=== PATIENT | female | born 1955 | race African-American/Black ===

== ENCOUNTER 2017-10-17 10:35 | Inpatient (IN) | payer MEDICARE, OTHER ==
[~2017-10-17] VITALS: Ht 175.3 cm; Wt 53.6 kg
[2017-10-17] MEDS ORDERED: MILLIPRED5 MG PEG (11:03)
[2017-10-17] MEDS ORDERED: ZOFRAN ODT4 MG PEG (11:03)
[2017-10-17] MEDS ORDERED: ACIDOPHILUS1 EAC1 PEG (11:03)
[2017-10-17] MEDS ORDERED: ULTRAM 50MG50 MG PEG (11:03)
[2017-10-17] MEDS ORDERED: QUESTRAN PACKET4 GM PEG (11:03)
[2017-10-17] MEDS ORDERED: ASPIRIN81 MG PO (11:03)
[2017-10-17] MEDS ORDERED: MULTIVITAMINS1 EAC6 PEG (11:03)
[2017-10-17] MEDS ORDERED: VANCOMYCIN HCL250 MG PEG (11:03)
[2017-10-17] MEDS ORDERED: Keppra solution PEG (11:03)
[2017-10-17] MEDS ORDERED: ORAZINC220 MG PO (11:03)
[2017-10-17] MEDS ORDERED: IMURAN50 MG PO (11:03)
[2017-10-17] MEDS ORDERED: IPRAT-ALBUT 0.5-3 ML INH (11:03)
[2017-10-17] MEDS ORDERED: VITAMIN C500 M1 PEG (11:03)
[2017-10-17] MEDS ORDERED: VITAMIN D32000 UNIT PEG (11:03)
[2017-10-17] MEDS ORDERED: Apixaban PO (11:03)
[2017-10-17] MEDS ORDERED: SODIUM CHLORIDE 0.9% 1000ML 1,000 ML IV STA (11:20)
--- NOTE | 2017-10-17 11:21 | Diagnostic Imaging Report ---
PROCEDURE: CHEST SINGLE (PORTABLE) COMPARISON: None. INDICATIONS: COUGH, FEVER FINDINGS: The lungs are hyperinflated with bullous changes noted within the left lung. Patchy airspace opacity in the right lung base. No pleural effusion or pneumothorax. Tortuosity and atherosclerotic calcification of the thoracic aorta with normal heart size. Tracheostomy tube tip lies within the mid trachea. No acute osseous abnormality. Probable percutaneous gastrostomy catheter projects over the left upper quadrant. CONCLUSION: Patchy airspace disease in the right lung base is concerning for aspiration or pneumonia in the clinical setting of cough and fever. Emphysematous and bullous changes predominantly within the left upper lung as described. Dictated by: Berry Maier M.D. on 10/17/2017 at 11:26 Electronically approved by: Berry Maier M.D. on 10/17/2017 at 11:26
[2017-10-17 11:29] LABS: BASOPHILS % 0.2 % (0.0-1.0); HEMATOCRIT 34.1 % (34.2-44.1); HEMOGLOBIN 10.9 g/dL (12.0-16.0); LYMPHOCYTES # (AUTO) 0.8 (1.0-3.2); LYMPHOCYTES % 13.9 % (18.0-39.1); MEAN CORPUSCULAR HEMOGLOBIN 27.8 pg (28-32); MONOCYTES # (AUTO) 0.4 (0.2-0.8); MONOCYTES % 7.5 % (4.4-11.3); NEUTROPHILS # (AUTO) 4.5 (2.1-6.9); NEUTROPHILS % 78.1 % (38.7-80.0); PLATELET COUNT 308 x10e3/uL (140-360); RED BLOOD COUNT 3.92 x10e6/uL (3.6-5.1); RED CELL DISTRIBUTION WIDTH 16.9 % (11.7-14.4)
[2017-10-17 11:39] LABS: BILIRUBIN,URINE NEGATIVE (NEGATIVE); COLOR,URINE YELLOW (YELLOW); KETONES,URINE NEGATIVE (NEGATIVE); NITRITE,URINE POSITIVE (NEGATIVE); PROTEIN,URINE DIPSTICK 1+ (NEGATIVE); URINE UROBILINOGEN 0.2 mg/dL (0.2 - 1)
[2017-10-17 11:40] LABS: CLARITY,URINE CLOUDY (CLEAR); LEUKOCYTE ESTERASE ,URINE 2+ (NEGATIVE)
[2017-10-17] MEDS ORDERED: CEFTRIAXONE SOD 1 GM VIAL IM ONE (11:45)
[2017-10-17 11:47] LABS: BACTERIA,URINE FEW /HPF; EPITHELIAL CELLS,URINE FEW /LPF
[2017-10-17 12:14] LABS: ANION GAP 12.6 mmol/L (8-16); BLOOD UREA NITROGEN 11 mg/dL (7-26); BUN/CREATININE RATIO 16 (6-25); CALCIUM 9.6 mg/dL (8.4-10.2); CARBON DIOXIDE 25 mmol/L (22-29); CHLORIDE 101 mmol/L (98-107); CREATININE, SERUM 0.67 mg/dL (0.57-1.11); EST GLOMERULAR FILTRATION RATE > 60 ML/MIN (60-); GLUCOSE 99 mg/dL (74-118); POTASSIUM 4.6 mmol/L (3.5-5.1); SODIUM 134 mmol/L (136-145)
[2017-10-17] MEDS ORDERED: ALBUTEROL SULF 0.083% NEB SOLN 3 ML NEB NEB PRN (12:30)
[2017-10-17] MEDS: CEFEPIME HCL 1 GM VIAL IV SCH (12:54)
[2017-10-17] MEDS: AZITHROMYCIN 500MG/NS 250 ML 250 ML IV SCH (12:54)
[2017-10-17] MEDS: SODIUM CHLORIDE 0.9% 1000ML 1,000 ML IV SCH ×2 (15:31→21:03)
[2017-10-17 19:28] VITALS: BP 136/44
[2017-10-17 19:38] VITALS: BP 136/44
[2017-10-18] VITALS (8 sets, daily range): BP systolic 108–134; BP diastolic 59–107
[2017-10-18] MEDS: CEFEPIME HCL 1 GM VIAL IV SCH ×2 (01:12→16:23)
[2017-10-18] MEDS: SODIUM CHLORIDE 0.9% 1000ML 1,000 ML IV SCH ×3 (02:30→20:44)
[2017-10-18] MEDS: AZITHROMYCIN 500MG/NS 250 ML 250 ML IV SCH (09:10)
[2017-10-18] MEDS ORDERED: CHOLESTYRAMINE 4 GM PACKET PEG PRN (18:00)
[2017-10-18] MEDS ORDERED: TRAMADOL HCL 50 MG TAB PEG PRN (18:00)
[2017-10-18] MEDS ORDERED: ALBUTEROL/IPRATROPIUM 3 ML NEB INH PRN (18:00)
[2017-10-18] MEDS ORDERED: VANCOMYCIN 250MG/5ML ORAL SOLN PEG SCH (18:00)
[2017-10-18] MEDS: VANCOMYCIN 250MG/5ML ORAL SOLN PEG SCH (18:28)
[2017-10-18] MEDS ORDERED: LEVETIRACETAM PEG SCH (21:00)
[2017-10-18] MEDS: VANCOMYCIN 1GM/NS 250 ML 250 ML IV SCH (22:03)
[2017-10-18] MEDS: LEVETIRACETAM ORAL SOLUTION 500 MG/5 ML SOLN PEG SCH (22:03)
[2017-10-19] VITALS (7 sets, daily range): BP systolic 127–143; BP diastolic 76–86
[2017-10-19] MEDS: VANCOMYCIN 250MG/5ML ORAL SOLN PEG SCH ×5 (00:37→23:51)
[2017-10-19] MEDS: CEFEPIME HCL 1 GM VIAL IV SCH ×3 (00:37→23:51)
[2017-10-19] MEDS: SODIUM CHLORIDE 0.9% 1000ML 1,000 ML IV SCH ×3 (04:25→21:25)
[2017-10-19] MEDS: MULTIVITAMINS 5 ML LIQUID PEG SCH (09:00)
[2017-10-19] MEDS ORDERED: NON-FORMULARY MEDICATION (Cholecalciferol (Vitamin D3) (Vitamin D3) 2,000 UNITS) PEG SCH (09:00)
[2017-10-19] MEDS: AZATHIOPRINE 50 MG TAB PO SCH (09:00)
[2017-10-19] MEDS ORDERED: NON-FORMULARY MEDICATION ([Apixaban] 5 MG) PO SCH (09:00)
[2017-10-19] MEDS: LACTOBACILLUS ACIDOPHILUS CAPSULE PEG SCH ×2 (09:00→17:00)
[2017-10-19] MEDS: PREDNISOLONE 15 MG/5 ML ORAL SOLUTION PEG SCH (09:00)
[2017-10-19] MEDS: ASCORBIC ACID 500 MG TAB PEG SCH ×2 (09:00→17:00)
[2017-10-19] MEDS ORDERED: MULTIVITAMINS/MINERALS TAB PEG SCH (09:00)
[2017-10-19] MEDS: APIXABAN 5 MG TABLET PO SCH ×2 (09:00→17:00)
[2017-10-19] MEDS: ASPIRIN 81 MG CHEW TAB PO SCH (09:00)
[2017-10-19] MEDS ORDERED: PREDNISOLONE 5 MG PEG SCH (09:00)
[2017-10-19] MEDS: VANCOMYCIN 1GM/NS 250 ML 250 ML IV SCH ×2 (09:00→21:25)
[2017-10-19] MEDS: ZINC SULFATE 220 MG CAP PO SCH (09:00)
[2017-10-19] MEDS: LEVETIRACETAM ORAL SOLUTION 500 MG/5 ML SOLN PEG SCH ×2 (09:00→21:25)
[2017-10-19] MEDS: CHOLECALCIFEROL 1,000 UNIT TAB PEG SCH (09:00)
[2017-10-19] MEDS: AZITHROMYCIN 500MG/NS 250 ML 250 ML IV SCH (10:10)
[2017-10-20] VITALS (8 sets, daily range): BP systolic 114–144; BP diastolic 56–80
[2017-10-20] MEDS: SODIUM CHLORIDE 0.9% 1000ML 1,000 ML IV SCH ×2 (04:25→17:02)
[2017-10-20] MEDS: VANCOMYCIN 250MG/5ML ORAL SOLN PEG SCH ×4 (05:55→23:21)
[2017-10-20] MEDS: LEVETIRACETAM ORAL SOLUTION 500 MG/5 ML SOLN PEG SCH ×2 (08:37→20:52)
[2017-10-20] MEDS: AZATHIOPRINE 50 MG TAB PO SCH (08:37)
[2017-10-20] MEDS: APIXABAN 5 MG TABLET PO SCH ×2 (08:37→17:58)
[2017-10-20] MEDS: LACTOBACILLUS ACIDOPHILUS CAPSULE PEG SCH ×2 (08:37→17:58)
[2017-10-20] MEDS: ASCORBIC ACID 500 MG TAB PEG SCH ×2 (08:37→17:58)
[2017-10-20] MEDS: CHOLECALCIFEROL 1,000 UNIT TAB PEG SCH (08:37)
[2017-10-20] MEDS: ONDANSETRON HCL 4 MG ORAL DISINTEGRATING TAB PEG PRN (08:37)
[2017-10-20] MEDS: AZITHROMYCIN 500MG/NS 250 ML 250 ML IV SCH (08:37)
[2017-10-20] MEDS: ASPIRIN 81 MG CHEW TAB PO SCH (08:37)
[2017-10-20] MEDS: ZINC SULFATE 220 MG CAP PO SCH (08:37)
[2017-10-20] MEDS: PREDNISOLONE 15 MG/5 ML ORAL SOLUTION PEG SCH (08:39)
[2017-10-20] MEDS: MULTIVITAMINS 5 ML LIQUID PEG SCH (08:39)
[2017-10-20] MEDS: VANCOMYCIN 1GM/NS 250 ML 250 ML IV SCH ×2 (10:44→20:52)
[2017-10-20] MEDS: CEFEPIME HCL 1 GM VIAL IV SCH ×2 (12:19→23:21)
--- NOTE | 2017-10-20 14:42 | Consultation ---
DATE OF CONSULTATION: REASON FOR CONSULTATION: Pneumonia. This patient who is a 61-year-old female who has a history of trach was brought to the emergency room because she had a dislodged trach. It was noted to have some discharge around the trach site. The patient was admitted. The patient has a history of hypertension, history of C. diff, history of CVA, history of dysphagia, seizure disorder, decubitus ulcer, atrial fibrillation, comes in for dislodged trach. The patient is not able to provide any further information. History was taken mainly from the chart. The patient is currently laying in bed comfortably. PAST MEDICAL HISTORY: As above. PAST SURGICAL HISTORY: Trach. ALLERGIES: NKA. SOCIAL HISTORY: Noncontributory. FAMILY HISTORY: Could not be obtained. REVIEW OF SYSTEMS: Could not be obtained. LABORATORY DATA: Reviewed. Sputum showing Pseudomonas aeruginosa. Blood cultures with gram-positive cocci in 1 out of 2. Urine showed also Pseudomonas aeruginosa and Providencia. Her white count is 5.7, hemoglobin 10.9, hematocrit 34. Her sodium is 134, potassium 4.6, creatinine 0.67. PHYSICAL EXAMINATION GENERAL: She is alert and noncommunicative. VITALS: Stable and afebrile. HEENT: She is anicteric. NECK: Supple. CHEST: Few crackles bilaterally. CORE: S1 and S2. ABDOMEN: Soft. The patient had a chest x-ray that showed emphysematous bullous changes, patchy airspace and lung disease concerning for aspiration. IMPRESSION 1. History of Clostridium difficile. 2. Aspiration pneumonia, present on admission. 3. Trach which was dislodged and repaired. 4. Trach site infection. 5. Bronchitis. 6. Colonization with multiple drug-resistant. 7. The patient is currently on cefepime and intravenous vancomycin and oral vancomycin. I would recommend to give vancomycin and cefepime IV for 5 days. The oral vancomycin for 3 weeks. Continue with local care for the trach. Will follow. Job#: [id number] NC
[2017-10-21] VITALS (7 sets, daily range): BP systolic 124–162; BP diastolic 63–89
[2017-10-21] MEDS: SODIUM CHLORIDE 0.9% 1000ML 1,000 ML IV SCH ×4 (04:00→21:15)
[2017-10-21 05:02] LABS: BASOPHILS % 0.4 % (0.0-1.0); EOSINOPHILS # (AUTO) 0.1 (0.0-0.4); EOSINOPHILS % 2.6 % (0.0-6.0); HEMATOCRIT 30.6 % (34.2-44.1); HEMOGLOBIN 9.4 g/dL (12.0-16.0); LYMPHOCYTES # (AUTO) 0.8 (1.0-3.2); LYMPHOCYTES % 33.6 % (18.0-39.1); MEAN CORPUSCULAR HEMOGLOBIN 27.6 pg (28-32); MEAN CORPUSCULAR HGB CONC 30.7 g/dL (31-35); MONOCYTES # (AUTO) 0.4 (0.2-0.8); MONOCYTES % 15.1 % (4.4-11.3); NEUTROPHILS # (AUTO) 1.1 (2.1-6.9); NEUTROPHILS % 48.3 % (38.7-80.0); PLATELET COUNT 286 x10e3/uL (140-360); RED CELL DISTRIBUTION WIDTH 16.2 % (11.7-14.4)
[2017-10-21 05:23] LABS: ANION GAP 8.9 mmol/L (8-16); BLOOD UREA NITROGEN 10 mg/dL (7-26); BUN/CREATININE RATIO 19 (6-25); CALCIUM 8.9 mg/dL (8.4-10.2); CARBON DIOXIDE 23 mmol/L (22-29); CHLORIDE 114 mmol/L (98-107); CREATININE, SERUM 0.53 mg/dL (0.57-1.11); EST GLOMERULAR FILTRATION RATE > 60 ML/MIN (60-); GLUCOSE 98 mg/dL (74-118); POTASSIUM 3.9 mmol/L (3.5-5.1); SODIUM 142 mmol/L (136-145)
[2017-10-21] MEDS: VANCOMYCIN 250MG/5ML ORAL SOLN PEG SCH (06:10)
[2017-10-21] MEDS: PREDNISOLONE 15 MG/5 ML ORAL SOLUTION PEG SCH (09:05)
[2017-10-21] MEDS: CHOLECALCIFEROL 1,000 UNIT TAB PEG SCH (09:05)
[2017-10-21] MEDS: ASPIRIN 81 MG CHEW TAB PO SCH (09:05)
[2017-10-21] MEDS: APIXABAN 5 MG TABLET PO SCH ×2 (09:05→17:12)
[2017-10-21] MEDS: LACTOBACILLUS ACIDOPHILUS CAPSULE PEG SCH ×2 (09:05→17:12)
[2017-10-21] MEDS: ZINC SULFATE 220 MG CAP PO SCH (09:05)
[2017-10-21] MEDS: AZITHROMYCIN 500MG/NS 250 ML 250 ML IV SCH (09:05)
[2017-10-21] MEDS: ASCORBIC ACID 500 MG TAB PEG SCH ×2 (09:05→17:12)
[2017-10-21] MEDS: AZATHIOPRINE 50 MG TAB PO SCH (09:05)
[2017-10-21] MEDS: LEVETIRACETAM ORAL SOLUTION 500 MG/5 ML SOLN PEG SCH ×2 (09:05→21:15)
[2017-10-21] MEDS: LINEZOLID 600 MG/D5W 300ML 300 ML IV SCH ×2 (09:55→21:15)
[2017-10-21] MEDS: MULTIVITAMINS 5 ML LIQUID PEG SCH (10:23)
[2017-10-21] MEDS: CEFEPIME HCL 1 GM VIAL IV SCH ×2 (12:56→23:19)
[2017-10-21] MEDS ORDERED: ARTIFICIAL TEARS (OPTH) 15 ML BTL OP PRN (19:15)
[2017-10-22 00:54] VITALS: BP 118/71
[2017-10-22 04:50] VITALS: BP 145/86
[2017-10-22] MEDS: SODIUM CHLORIDE 0.9% 1000ML 1,000 ML IV SCH ×3 (06:33→20:25)
[2017-10-22 07:50] VITALS: BP 148/85
[2017-10-22] MEDS ORDERED: ALBUTEROL/IPRATROPIUM 3 ML NEB INH PRN (08:00)
[2017-10-22] MEDS: APIXABAN 5 MG TABLET PO SCH ×2 (08:52→16:16)
[2017-10-22] MEDS: LINEZOLID 600 MG/D5W 300ML 300 ML IV SCH ×2 (08:52→20:50)
[2017-10-22] MEDS: LEVETIRACETAM ORAL SOLUTION 500 MG/5 ML SOLN PEG SCH ×2 (08:52→20:50)
[2017-10-22] MEDS: ZINC SULFATE 220 MG CAP PO SCH (08:52)
[2017-10-22] MEDS: ASPIRIN 81 MG CHEW TAB PO SCH (08:52)
[2017-10-22] MEDS: AZATHIOPRINE 50 MG TAB PO SCH (08:52)
[2017-10-22] MEDS: ASCORBIC ACID 500 MG TAB PEG SCH ×2 (08:52→16:16)
[2017-10-22] MEDS: PREDNISOLONE 15 MG/5 ML ORAL SOLUTION PEG SCH (08:52)
[2017-10-22] MEDS: MULTIVITAMINS 5 ML LIQUID PEG SCH (08:52)
[2017-10-22] MEDS: LACTOBACILLUS ACIDOPHILUS CAPSULE PEG SCH ×2 (08:52→16:16)
[2017-10-22] MEDS: CHOLECALCIFEROL 1,000 UNIT TAB PEG SCH (08:52)
[2017-10-22 11:30] VITALS: BP 134/71
[2017-10-22] MEDS: CEFEPIME HCL 1 GM VIAL IV SCH (12:23)
[2017-10-22] MEDS ORDERED: METRONIDAZOLE 500 MG TAB PEG SCH (14:00)
[2017-10-22] MEDS ORDERED: METRONIDAZOLE 500MG/NS 100ML 100 ML IV SCH (14:00)
[2017-10-22] MEDS: METRONIDAZOLE 500 MG TAB PEG SCH ×2 (14:02→22:30)
[2017-10-22 15:40] VITALS: BP 152/81
[2017-10-22 19:30] VITALS: BP 150/96
[2017-10-23] VITALS (7 sets, daily range): BP systolic 132–146; BP diastolic 73–90
[2017-10-23] MEDS: CEFEPIME HCL 1 GM VIAL IV SCH ×2 (00:51→12:08)
[2017-10-23] MEDS: SODIUM CHLORIDE 0.9% 1000ML 1,000 ML IV SCH ×2 (02:16→12:08)
[2017-10-23] MEDS: METRONIDAZOLE 500 MG TAB PEG SCH ×2 (05:45→14:48)
[2017-10-23] MEDS: LEVETIRACETAM ORAL SOLUTION 500 MG/5 ML SOLN PEG SCH (08:55)
[2017-10-23] MEDS: CHOLECALCIFEROL 1,000 UNIT TAB PEG SCH (08:56)
[2017-10-23] MEDS: ASCORBIC ACID 500 MG TAB PEG SCH ×2 (08:56→17:28)
[2017-10-23] MEDS: LACTOBACILLUS ACIDOPHILUS CAPSULE PEG SCH ×2 (08:56→17:28)
[2017-10-23] MEDS: ASPIRIN 81 MG CHEW TAB PO SCH (08:56)
[2017-10-23] MEDS: ZINC SULFATE 220 MG CAP PO SCH (08:56)
[2017-10-23] MEDS: AZATHIOPRINE 50 MG TAB PO SCH (08:57)
[2017-10-23] MEDS: APIXABAN 5 MG TABLET PO SCH ×2 (08:58→17:28)
[2017-10-23] MEDS: MULTIVITAMINS 5 ML LIQUID PEG SCH (09:00)
[2017-10-23] MEDS: LINEZOLID 600 MG/D5W 300ML 300 ML IV SCH (09:24)
[2017-10-23] MEDS: PREDNISOLONE 15 MG/5 ML ORAL SOLUTION PEG SCH (09:24)
[2017-10-24] VITALS (10 sets, daily range): BP systolic 118–148; BP diastolic 60–89
[2017-10-24] MEDS: LINEZOLID 600 MG/D5W 300ML 300 ML IV SCH ×3 (00:22→21:24)
[2017-10-24] MEDS: LEVETIRACETAM ORAL SOLUTION 500 MG/5 ML SOLN PEG SCH ×3 (00:22→21:24)
[2017-10-24] MEDS: METRONIDAZOLE 500 MG TAB PEG SCH ×4 (00:22→21:24)
[2017-10-24] MEDS: CEFEPIME HCL 1 GM VIAL IV SCH ×2 (00:35→12:35)
[2017-10-24] MEDS: PREDNISOLONE 15 MG/5 ML ORAL SOLUTION PEG SCH (09:43)
[2017-10-24] MEDS: CHOLECALCIFEROL 1,000 UNIT TAB PEG SCH (09:43)
[2017-10-24] MEDS: ASCORBIC ACID 500 MG TAB PEG SCH ×2 (09:43→17:01)
[2017-10-24] MEDS: ASPIRIN 81 MG CHEW TAB PO SCH (09:43)
[2017-10-24] MEDS: LACTOBACILLUS ACIDOPHILUS CAPSULE PEG SCH ×2 (09:43→17:01)
[2017-10-24] MEDS: MULTIVITAMINS 5 ML LIQUID PEG SCH (09:43)
[2017-10-24] MEDS: ZINC SULFATE 220 MG CAP PO SCH (09:44)
[2017-10-24] MEDS: AZATHIOPRINE 50 MG TAB PO SCH (09:44)
[2017-10-24] MEDS: APIXABAN 5 MG TABLET PO SCH ×2 (09:44→17:01)
[2017-10-25] VITALS (13 sets, daily range): BP systolic 120–147; BP diastolic 65–85
[2017-10-25] MEDS: METRONIDAZOLE 500 MG TAB PEG SCH ×3 (05:02→21:12)
[2017-10-25] MEDS: LINEZOLID 600 MG/D5W 300ML 300 ML IV SCH (09:30)
[2017-10-25] MEDS: ASCORBIC ACID 500 MG TAB PEG SCH ×2 (10:15→17:18)
[2017-10-25] MEDS: AZATHIOPRINE 50 MG TAB PO SCH (10:15)
[2017-10-25] MEDS: PREDNISOLONE 15 MG/5 ML ORAL SOLUTION PEG SCH (10:15)
[2017-10-25] MEDS: CHOLECALCIFEROL 1,000 UNIT TAB PEG SCH (10:15)
[2017-10-25] MEDS: ZINC SULFATE 220 MG CAP PO SCH (10:15)
[2017-10-25] MEDS: APIXABAN 5 MG TABLET PO SCH ×2 (10:15→17:18)
[2017-10-25] MEDS: LACTOBACILLUS ACIDOPHILUS CAPSULE PEG SCH ×2 (10:15→17:18)
[2017-10-25] MEDS: MULTIVITAMINS 5 ML LIQUID PEG SCH (10:15)
[2017-10-25] MEDS: LEVETIRACETAM ORAL SOLUTION 500 MG/5 ML SOLN PEG SCH ×2 (10:15→21:12)
[2017-10-25] MEDS: ASPIRIN 81 MG CHEW TAB PO SCH (10:15)
--- NOTE | 2017-10-25 10:44 | Consultation ---
DATE OF CONSULTATION: This is a patient of Dr. Francisco Khalil and Dr. Hicks. Patient is well known to pulmonary service. History of stroke approximately 10 months ago. History of chronic tracheostomy, which was displaced in the [place] [facility] on 10[facility]. She was taken to the hospital, where it was replaced. In the emergency room, she was found to have a right lower lobe pneumonia. Cultures grew pseudomonas. She has a history of persistent right hemiparesis, history of lupus erythematosus, history of dysphagia, hypertension, atrial fibrillation, seizure disorder, sacral wound. SHE IS ALLERGIC TO CODEINE AND TYLENOL. Her medications include aspirin, Imuran, vitamin D, prednisone, tramadol, DuoNeb, Keppra and Eliquis. She is an ex-smoker. PHYSICAL EXAMINATION GENERAL: She is bright and in no acute distress. Tracheostomy was placed. The patient was felt to be at increased risk for recurrent pneumonia and respiratory failure. The family and the patient have agreed with this approach. VITALS: Temperature 98.9, pulse 103, blood pressure 137/77. Pulse feels regular at this time. LUNGS: A few rhonchi. HEART: Regular rhythm. ABDOMEN: Nontender. PEG is in place. : Vega catheter and rectal tube. IMPRESSION 1. Resolving pneumonia. Will request followup chest x-ray now that tracheostomy has been replaced. Continue supportive care. Therapy of lupus. Trial of Passy Jose J. If the patient becomes a little bit stronger, consideration might be to elect to remove the tracheostomy. 2. History of recent Clostridium difficile colitis. MEDICATIONS: Currently, the patient is on DuoNeb on a p.r.n. basis, Eliquis, aspirin, azathioprine, vitamin D, Questran p.r.n., Keppra, Flagyl, prednisone 5 mg. Thank you for this kind referral. Job#: [id number]
--- NOTE | 2017-10-25 11:57 | Diagnostic Imaging Report ---
PROCEDURE: A single AP view of the chest. COMPARISON: Patients [facility], , CHEST SINGLE (PORTABLE), 10/17/2017, 11:01. INDICATIONS: PNEUMONIA FINDINGS: Lines/tubes: A tracheostomy tube in place. Lungs: Lungs are well-inflated. Coarsening of the pulmonary interstitium, predominantly in the lower lungs. Interval improvement of airspace opacity in the right lower lung, however, there is persistent patchy opacity. Pleura: There is no pleural effusion or pneumothorax. Heart and mediastinum: Cardiac silhouette is unremarkable. Pulmonary vasculature is normal. Bones: No acute bony abnormality. IMPRESSION: 1. interval improvement of airspace opacity in the right lower lung. Remaining patchy opacity in the right lower may reflect residual disease superimposed on chronic interstitial changes. Ruslan Florez M.D. Dictated by: Ruslan Florez M.D. on 10/25/2017 at 12:02 Electronically approved by: Ruslan Florez M.D. on 10/25/2017 at 12:02
[2017-10-25] MEDS: ALBUTEROL/IPRATROPIUM 3 ML NEB INH PRN (19:55)
--- NOTE | 2017-10-25 20:26 | Consultation ---
DATE OF CONSULTATION: October 25, 2017 HISTORY OF PRESENT ILLNESS: I was kindly asked to see this 61-year-old woman for evaluation of dislodged tracheostomy tube. Patient had a #4 Shiley cuffed tracheostomy tube in place. The tube was found to be dislodged and unable to be placed through the previous tracheostomy site. For history of present illness, past medical history and past surgical history were reviewed in detail in the chart. PHYSICAL EXAMINATION: The patient is aphonic. Intraoral examination is noncontributory. She has an open tracheocutaneous fistula. There is no palpable cervical adenopathy. The #4 Shiley cuff tracheostomy tube was reinserted. ASSESSMENT: Respiratory failure. PLAN: Will discuss with the patient's primary care physician and top stitcher regarding possibly changing to a larger tracheostomy tube to prevent mucus plugging and provide better pulmonary toilet. Job#: [id number]
[2017-10-26 04:37] VITALS: BP 133/77
[2017-10-26] MEDS: METRONIDAZOLE 500 MG TAB PEG SCH ×3 (05:20→22:43)
[2017-10-26] MEDS: ALBUTEROL/IPRATROPIUM 3 ML NEB INH PRN ×3 (07:28→20:05)
[2017-10-26 07:30] VITALS: BP 136/66
[2017-10-26] MEDS: MULTIVITAMINS 5 ML LIQUID PEG SCH (08:34)
[2017-10-26] MEDS: LACTOBACILLUS ACIDOPHILUS CAPSULE PEG SCH ×2 (08:34→17:41)
[2017-10-26] MEDS: AZATHIOPRINE 50 MG TAB PO SCH (08:34)
[2017-10-26] MEDS: CHOLECALCIFEROL 1,000 UNIT TAB PEG SCH (08:34)
[2017-10-26] MEDS: APIXABAN 5 MG TABLET PO SCH ×2 (08:34→17:41)
[2017-10-26] MEDS: ASPIRIN 81 MG CHEW TAB PO SCH (08:34)
[2017-10-26] MEDS: ASCORBIC ACID 500 MG TAB PEG SCH ×2 (08:34→17:41)
[2017-10-26] MEDS: PREDNISOLONE 15 MG/5 ML ORAL SOLUTION PEG SCH (08:34)
[2017-10-26] MEDS: LEVETIRACETAM ORAL SOLUTION 500 MG/5 ML SOLN PEG SCH ×2 (08:34→21:49)
[2017-10-26] MEDS: ZINC SULFATE 220 MG CAP PO SCH (08:34)
[2017-10-26 11:30] VITALS: BP 136/74
[2017-10-26 17:01] VITALS: BP 145/99
[2017-10-26 19:00] VITALS: BP 155/82
[2017-10-26 23:00] VITALS: BP 119/64
[2017-10-27 04:00] VITALS: BP 143/75
[2017-10-27] MEDS: METRONIDAZOLE 500 MG TAB PEG SCH ×3 (06:33→22:18)
[2017-10-27] MEDS: ALBUTEROL/IPRATROPIUM 3 ML NEB INH PRN (06:59)
[2017-10-27 09:21] VITALS: BP 130/65
[2017-10-27 09:22] VITALS: BP 130/65
--- NOTE | 2017-10-27 10:15 | Progress Note ---
DATE: October 26, 2017 I had discussed the risk of keeping the #[address] Washburn with concern over possible mucous plugging of the small tracheostomy tube. He had discussed the case with her primary care physician. It was felt that she needed the tracheostomy tube for pulmonary toilet. I made plans to replace the #4 tracheostomy tube with a #6 tracheostomy tube for decreased risk of mucous plugging and increased ability for pulmonary toilet. However the patient's family member "Sneha" did not want to have this tracheostomy tube changed. She much preferred that the patient be decannulated. I explained that while the #4 tracheostomy tube was out that she had no difficulty breathing and that the need for the tracheostomy tube was for pulmonary toilet. Sneha preferred to discuss the case further with the histology manager and primary care physician regarding possible decannulation rather than upsizing the tracheostomy tube. ASSESSMENT: Currently stable with #4 tracheostomy tube. PLAN: Will await patient's family decision after consultation with other physicians involved on the case regarding the upsizing of the tracheostomy tube versus decannulation. Job#: [id number] MAU
[2017-10-27] MEDS: ASCORBIC ACID 500 MG TAB PEG SCH ×2 (10:38→17:48)
[2017-10-27] MEDS: ASPIRIN 81 MG CHEW TAB PO SCH (10:38)
[2017-10-27] MEDS: CHOLECALCIFEROL 1,000 UNIT TAB PEG SCH (10:38)
[2017-10-27] MEDS: ZINC SULFATE 220 MG CAP PO SCH (10:38)
[2017-10-27] MEDS: APIXABAN 5 MG TABLET PO SCH ×2 (10:38→17:48)
[2017-10-27] MEDS: LACTOBACILLUS ACIDOPHILUS CAPSULE PEG SCH ×2 (10:38→17:48)
[2017-10-27] MEDS: MULTIVITAMINS 5 ML LIQUID PEG SCH (10:38)
[2017-10-27] MEDS: LEVETIRACETAM ORAL SOLUTION 500 MG/5 ML SOLN PEG SCH ×2 (10:38→22:18)
[2017-10-27] MEDS: PREDNISOLONE 15 MG/5 ML ORAL SOLUTION PEG SCH (10:38)
[2017-10-27] MEDS: AZATHIOPRINE 50 MG TAB PO SCH (10:40)
[2017-10-27 11:00] VITALS: BP 151/94
--- NOTE | 2017-10-27 16:05 | Progress Note ---
DATE: INTERNAL MEDICINE PROGRESS NOTE SUBJECTIVE: The patient is doing well. No significant complaint. PHYSICAL EXAMINATION VITAL SIGNS: Blood pressure 130/65. Temperature 99 degrees. Heart rate 81 per minute. Respiratory rate is 18 per minute. Oxygen saturation is 98%. HEART: Regular rhythm. Normal S1 and S2 sounds. LUNGS: Clear bilaterally. ABDOMEN: Soft. PEG tube in place. EXTREMITIES: No evidence of edema. BLOOD WORK: We have a BMP with a sodium 142, potassium 3.9, chloride 114, CO2 23. BUN 10, creatinine 0.53, glucose 98. CBC showed white blood count 2.32, hemoglobin 9.4, hematocrit 30.6, platelet count 296,000. FINAL IMPRESSION 1. Aspiration pneumonia. 2. Ohaqr-rf-efzmjbn respiratory failure status post tracheostomy. 3. Status post cerebrovascular accident with aphasia. 4. Dysphagia secondary to cerebrovascular accident. 5. History of Clostridium difficile colitis. 6. Anemia of chronic disease. 7. Vitamin D deficiency. 8. Sacral wound, stage 3 to 4. PLAN OF TREATMENT 1. Continue current wound care treatment. 2. Continue albuterol and Atrovent q.6 h. while awake. 3. Aspirin 81 mg daily. 4. Multivitamin 5 ml daily. 5. Keppra 500 mg twice a day. 6. Lactobacillus acidophilus 1 tablet twice a day. 7. Vitamin D 2,000 units daily. 8. Methylprednisolone 5 mg daily. 9. Zofran 8 mg q.8 h. as needed. 10. Artificial tears twice a day as needed. 11. Vitamin C 500 mg twice a day. 12. Zinc sulfate 220 mg daily. 13. Metronidazole 500 mg q.8 h. 14. Continue contact isolation. 15. Continue Questran 4 grams daily as needed. 16. Eliquis 5 mg twice a day. 17. 75 mg daily. 18. I discussed the case with the sister at the bedside. Patient's family is still undecided about to remove the tracheostomy or to put a larger tracheostomy. Continue current wound care treatment. Medications have been reviewed. Time spent around 30 to 45 minutes. Job#: [id number]
[2017-10-27 17:28] VITALS: BP 103/74
[2017-10-27 20:00] VITALS: BP 146/80
[2017-10-28] VITALS (10 sets, daily range): BP systolic 100–144; BP diastolic 59–84
[2017-10-28 05:55] LABS: BASOPHILS # (AUTO) 0.1 (0.0-0.1); BASOPHILS % 0.5 % (0.0-1.0); EOSINOPHILS # (AUTO) 0.3 (0.0-0.4); EOSINOPHILS % 2.1 % (0.0-6.0); HEMATOCRIT 25.6 % (34.2-44.1); HEMOGLOBIN 8.1 g/dL (12.0-16.0); LYMPHOCYTES # (AUTO) 2.7 (1.0-3.2); LYMPHOCYTES % 19.8 % (18.0-39.1); MEAN CORPUSCULAR HEMOGLOBIN 24.6 pg (28-32); MEAN CORPUSCULAR HGB CONC 31.6 g/dL (31-35); MEAN CORPUSCULAR VOLUME 77.8 fL (81-99); MONOCYTES % 7.1 % (4.4-11.3); NEUTROPHILS # (AUTO) 9.1 (2.1-6.9); NEUTROPHILS % 66.7 % (38.7-80.0); PLATELET COUNT 412 x10e3/uL (140-360); RED BLOOD COUNT 3.29 x10e6/uL (3.6-5.1); RED CELL DISTRIBUTION WIDTH 14.9 % (11.7-14.4)
[2017-10-28 06:15] LABS: ANION GAP 13.3 mmol/L (8-16); CALCIUM 7.6 mg/dL (8.4-10.2); CARBON DIOXIDE 27 mmol/L (22-29); CHLORIDE 100 mmol/L (98-107); CREATININE, SERUM 0.47 mg/dL (0.57-1.11); EST GLOMERULAR FILTRATION RATE > 60 ML/MIN (60-); GLUCOSE 94 mg/dL (74-118); POTASSIUM 3.3 mmol/L (3.5-5.1); SODIUM 137 mmol/L (136-145)
[2017-10-28] MEDS: METRONIDAZOLE 500 MG TAB PEG SCH ×3 (06:16→21:55)
[2017-10-28 06:36] LABS: BLOOD UREA NITROGEN < 2 mg/dL (7-26); BUN/CREATININE RATIO 4 (6-25)
[2017-10-28] MEDS: ZINC SULFATE 220 MG CAP PO SCH (09:07)
[2017-10-28] MEDS: APIXABAN 5 MG TABLET PO SCH ×2 (09:08→17:45)
[2017-10-28] MEDS: LACTOBACILLUS ACIDOPHILUS CAPSULE PEG SCH ×2 (09:08→17:45)
[2017-10-28] MEDS: ASPIRIN 81 MG CHEW TAB PO SCH (09:08)
[2017-10-28] MEDS: ASCORBIC ACID 500 MG TAB PEG SCH ×2 (09:08→17:45)
[2017-10-28] MEDS: CHOLECALCIFEROL 1,000 UNIT TAB PEG SCH (09:08)
[2017-10-28] MEDS: LEVETIRACETAM ORAL SOLUTION 500 MG/5 ML SOLN PEG SCH ×2 (09:09→21:55)
[2017-10-28] MEDS: MULTIVITAMINS 5 ML LIQUID PEG SCH (09:09)
[2017-10-28] MEDS: AZATHIOPRINE 50 MG TAB PO SCH (09:11)
[2017-10-28] MEDS: PREDNISOLONE 15 MG/5 ML ORAL SOLUTION PEG SCH (09:11)
[2017-10-28 10:18] LABS: EOSINOPHILS % (MANUAL) 2 % (0-7); LYMPHOCYTES % (MANUAL) 16 % (19-48); MONOCYTES % (MANUAL) 11 % (3.4-9.0); NEUTROPHILS % (MANUAL) 71 % (40-74)
[2017-10-28 10:19] LABS: PLATELET ESTIMATE MODERATELY INCREASED; PLATELET MORPHOLOGY COMMENT NORMAL; RBC MORPHOLOGY COMMENT NORMAL
[2017-10-28] MEDS: ALBUTEROL/IPRATROPIUM 3 ML NEB INH PRN ×2 (13:52→19:30)
[2017-10-28] MEDS ORDERED: POTASSIUM CHLORIDE 20 MEQ TAB CR PO ONE (14:00)
--- NOTE | 2017-10-28 15:56 | Progress Note ---
DATE: INTERNAL MEDICINE PROGRESS NOTE SUBJECTIVE: Patient is doing well. No significant complaint. PHYSICAL EXAM: VITAL SIGNS: Blood pressure 136/79. Temperature 98.1. Heart rate 97 per minute. Respiratory rate is 20 per minute. Oxygen is 100%. HEART: Shows regular rhythm. Normal S1 and S2 sounds. LUNGS: Clear bilaterally. ABDOMEN: Soft. EXTREMITIES: Show no evidence of cyanosis, edema or trauma. On the BMP: Sodium 137, potassium 3.3, chloride 100, CO2 27, BUN 2, creatinine 0.47, glucose 94. On the CBC: White blood count 13.7, hemoglobin 8.1, hematocrit 35.6, platelet count 412,000. FINAL IMPRESSION: 1. Aspiration pneumonia. 2. Acute on chronic respiratory failure status post tracheostomy. 3. History of cerebrovascular accident. 4. Dysphagia secondary to cerebrovascular accident. 5. Clostridium difficile colitis. 6. Chronic anemia. 7. Sacral decubitus stage 3. PLAN OF TREATMENT: We are going to continue the current wound care treatment. Continue albuterol and Atrovent q.6 h. while awake. Aspirin 81 mg daily. Multivitamin 5 mL daily. Replace the potassium with 40 mEq one time. Repeat a BMP and magnesium levels tomorrow. Continue Keppra 500 mg via PEG tube twice a day. Lactobacillus acidophilus 1 tablet twice a day. Cholecalciferol 2000 units daily. Prednisolone 5 mg daily. Zofran 8 mg q.8 h. as needed. Artificial Tears twice a day. Vitamin C 500 mg twice a day. Zinc sulfate 220 mg daily. Metronidazole 500 mg via PEG tube q.8 h. Questran as needed, 4 g as needed for diarrhea. Eliquis 5 mg twice a day. 75 mg daily. A CBC has been ordered, and BMP and magnesium levels have been ordered for tomorrow. Dr. Robert is on the case for ear, nose and throat followup. Family is debating whether or not they are going to allow to remove the tracheostomy versus changing the size of the tracheostomy. Dr. Hicks is seeing her from the infectious disease point of view, and Dr. Washburn is following her from the pulmonary point of view. Continue current medication regimen. Dr. Peters will resume the care tomorrow. Job#: [id number] EV
[2017-10-28] MEDS ORDERED: POTASSIUM CHLORIDE 20MEQ/15ML UDC GT ONE (17:30)
[2017-10-28] MEDS: NYSTATIN/TRIAMCINOLONE 15 GM CR TOP SCH (19:27)
[2017-10-29] VITALS (9 sets, daily range): BP systolic 123–136; BP diastolic 59–87
--- NOTE | 2017-10-29 00:37 | Progress Note ---
DATE: SUBJECTIVE: Ms. Gabriel continued to improve. There are no new complaints. REVIEW OF SYSTEMS: There is nothing new. PHYSICAL EXAMINATION: GENERAL: She is currently alert and oriented, does not seem to be in acute distress. VITAL SIGNS: Stable, currently afebrile. HEENT: She does not appear icteric. NECK: Supple. CHEST: Clear. HEART: S1 and S2 normal. ABDOMEN: Soft. Bowel sounds present. No tenderness. EXTREMITIES: No edema. IMPRESSION: 1. Aspiration pneumonia, resolved. 2. Status post violi-ut-[id number] respiratory failure. 3. Status post tracheostomy. 4. History of cerebrovascular accident. 5. History of dysphagia secondary to cerebrovascular accident. 6. History of Clostridium difficile colitis. 7. Sacral decubitus ulcer, stage 3. Discussed with the family of oral Flagyl. She is doing good. Aspiration precaution. Patient has risk for recurrent infection and pneumonia. Will follow with you daily. Job#: [id number]
[2017-10-29] MEDS: METRONIDAZOLE 500 MG TAB PEG SCH (05:30)
[2017-10-29 05:57] LABS: ANION GAP 13.7 mmol/L (8-16); BLOOD UREA NITROGEN 12 mg/dL (7-26); BUN/CREATININE RATIO 20 (6-25); CALCIUM 9.9 mg/dL (8.4-10.2); CARBON DIOXIDE 26 mmol/L (22-29); CHLORIDE 104 mmol/L (98-107); CREATININE, SERUM 0.61 mg/dL (0.57-1.11); EST GLOMERULAR FILTRATION RATE > 60 ML/MIN (60-); GLUCOSE 94 mg/dL (74-118); POTASSIUM 4.7 mmol/L (3.5-5.1); SODIUM 139 mmol/L (136-145)
[2017-10-29 06:47] LABS: BASOPHILS % 0.4 % (0.0-1.0); EOSINOPHILS # (AUTO) 0.1 (0.0-0.4); EOSINOPHILS % 1.9 % (0.0-6.0); LYMPHOCYTES # (AUTO) 1.3 (1.0-3.2); LYMPHOCYTES % 26.8 % (18.0-39.1); MEAN CORPUSCULAR HEMOGLOBIN 28.4 pg (28-32); MEAN CORPUSCULAR HGB CONC 31.4 g/dL (31-35); MONOCYTES # (AUTO) 0.9 (0.2-0.8); MONOCYTES % 20.2 % (4.4-11.3); NEUTROPHILS # (AUTO) 2.3 (2.1-6.9); NEUTROPHILS % 50.3 % (38.7-80.0); PLATELET COUNT 268 x10e3/uL (140-360); RED BLOOD COUNT 3.98 x10e6/uL (3.6-5.1)
[2017-10-29 06:56] LABS: HEMOGLOBIN 11.3 g/dL (12.0-16.0); MEAN CORPUSCULAR VOLUME 90.5 fL (81-99); RED CELL DISTRIBUTION WIDTH 17.7 % (11.7-14.4)
[2017-10-29] MEDS: ALBUTEROL/IPRATROPIUM 3 ML NEB INH PRN (07:20)
[2017-10-29] MEDS: AZATHIOPRINE 50 MG TAB PO SCH (10:15)
[2017-10-29] MEDS: CHOLECALCIFEROL 1,000 UNIT TAB PEG SCH (10:15)
[2017-10-29] MEDS: MULTIVITAMINS 5 ML LIQUID PEG SCH (10:15)
[2017-10-29] MEDS: APIXABAN 5 MG TABLET PO SCH ×2 (10:15→18:00)
[2017-10-29] MEDS: ASCORBIC ACID 500 MG TAB PEG SCH ×2 (10:15→18:00)
[2017-10-29] MEDS: ZINC SULFATE 220 MG CAP PO SCH (10:15)
[2017-10-29] MEDS: LEVETIRACETAM ORAL SOLUTION 500 MG/5 ML SOLN PEG SCH ×2 (10:15→21:10)
[2017-10-29] MEDS: PREDNISOLONE 15 MG/5 ML ORAL SOLUTION PEG SCH (10:15)
[2017-10-29] MEDS: ASPIRIN 81 MG CHEW TAB PO SCH (10:15)
[2017-10-29] MEDS: LACTOBACILLUS ACIDOPHILUS CAPSULE PEG SCH ×2 (10:15→18:00)
[2017-10-29] MEDS: NYSTATIN/TRIAMCINOLONE 15 GM CR TOP SCH ×2 (10:30→18:25)
[2017-10-29 10:39] LABS: ABG PCO2 35 mmHg (41-51); ABG PH 7.49 (7.31-7.41)
[2017-10-29 10:40] LABS: ABG HCO3 27 mmol/L (23-28); ABG PO2 77 mmHg (80-105)
[2017-10-29] MEDS ORDERED: ALBUTEROL/IPRATROPIUM 3 ML NEB INH SCH (12:00)
--- NOTE | 2017-10-29 13:20 | Diagnostic Imaging Report ---
PROCEDURE: A single AP view of the chest. COMPARISON: 10/25/17 INDICATIONS: PNEUMONIA FINDINGS: Lines/tubes: None. Lungs: The lungs are well inflated. No definite focal consolidation. Prominent interstitial lung markings versus mild interstitial edema. Lingular linear atelectasis/scaring unchanged. Pleura: There is no significant pleural effusion or pneumothorax. Heart and mediastinum: The heart and the mediastinum are unremarkable. Bones: No acute bony abnormality. IMPRESSION: No definite focal consolidation. Prominent chronic interstitial lung markings versus mild interstitial edema. Dictated by: Derek Espinoza M.D. on 10/29/2017 at 13:25 Electronically approved by: Derek Espinoza M.D. on 10/29/2017 at 13:25
[2017-10-29] MEDS: ALBUTEROL/IPRATROPIUM 3 ML NEB INH SCH ×2 (14:33→19:35)
[2017-10-30] VITALS (8 sets, daily range): BP systolic 113–125; BP diastolic 67–84
[2017-10-30] MEDS: ALBUTEROL/IPRATROPIUM 3 ML NEB INH SCH ×2 (01:27→07:00)
[2017-10-30 05:13] LABS: BASOPHILS % 0.4 % (0.0-1.0); EOSINOPHILS % 0.8 % (0.0-6.0); HEMATOCRIT 36.4 % (34.2-44.1); HEMOGLOBIN 11.3 g/dL (12.0-16.0); LYMPHOCYTES # (AUTO) 1.4 (1.0-3.2); LYMPHOCYTES % 28.5 % (18.0-39.1); MEAN CORPUSCULAR HEMOGLOBIN 28.4 pg (28-32); MEAN CORPUSCULAR VOLUME 91.5 fL (81-99); MONOCYTES # (AUTO) 1.1 (0.2-0.8); MONOCYTES % 21.5 % (4.4-11.3); NEUTROPHILS # (AUTO) 2.4 (2.1-6.9); NEUTROPHILS % 48.2 % (38.7-80.0); PLATELET COUNT 289 x10e3/uL (140-360); RED BLOOD COUNT 3.98 x10e6/uL (3.6-5.1); RED CELL DISTRIBUTION WIDTH 18.1 % (11.7-14.4)
[2017-10-30 05:54] LABS: ALANINE AMINOTRANSFERASE 25 IU/L (0-55); ALBUMIN 2.7 g/dL (3.5-5.0); ALBUMIN/GLOBULIN RATIO 0.6 (0.8-2.0); ALKALINE PHOSPHATASE 105 IU/L (40-150); ANION GAP 12.9 mmol/L (8-16); BLOOD UREA NITROGEN 14 mg/dL (7-26); BUN/CREATININE RATIO 20 (6-25); CALCIUM 9.9 mg/dL (8.4-10.2); CARBON DIOXIDE 27 mmol/L (22-29); CHLORIDE 104 mmol/L (98-107); CREATININE, SERUM 0.69 mg/dL (0.57-1.11); EST GLOMERULAR FILTRATION RATE > 60 ML/MIN (60-); GLUCOSE 94 mg/dL (74-118); POTASSIUM 4.9 mmol/L (3.5-5.1); SODIUM 139 mmol/L (136-145)
[2017-10-30] MEDS: APIXABAN 5 MG TABLET PO SCH ×2 (09:52→17:42)
[2017-10-30] MEDS: MULTIVITAMINS 5 ML LIQUID PEG SCH (09:52)
[2017-10-30] MEDS: LACTOBACILLUS ACIDOPHILUS CAPSULE PEG SCH ×2 (09:52→17:42)
[2017-10-30] MEDS: LEVETIRACETAM ORAL SOLUTION 500 MG/5 ML SOLN PEG SCH ×2 (09:52→20:54)
[2017-10-30] MEDS: ASPIRIN 81 MG CHEW TAB PO SCH (09:52)
[2017-10-30] MEDS: PREDNISOLONE 15 MG/5 ML ORAL SOLUTION PEG SCH (09:52)
[2017-10-30] MEDS: ASCORBIC ACID 500 MG TAB PEG SCH ×2 (09:52→17:42)
[2017-10-30] MEDS: CHOLECALCIFEROL 1,000 UNIT TAB PEG SCH (09:52)
[2017-10-30] MEDS: ZINC SULFATE 220 MG CAP PO SCH (09:53)
[2017-10-30] MEDS: NYSTATIN/TRIAMCINOLONE 15 GM CR TOP SCH ×2 (09:53→17:42)
[2017-10-30] MEDS: AZATHIOPRINE 50 MG TAB PO SCH (09:53)
[2017-10-30] MEDS: LEVALBUTEROL HCL SOLN NEBU 0.63 MG/3 ML NEB INH PRN (13:00)
[2017-10-30] MEDS: ONDANSETRON HCL 4 MG ORAL DISINTEGRATING TAB PEG PRN (21:39)
[2017-10-31] VITALS (7 sets, daily range): BP systolic 110–122; BP diastolic 62–93
[2017-10-31 05:04] LABS: BASOPHILS % 0.3 % (0.0-1.0); EOSINOPHILS # (AUTO) 0.1 (0.0-0.4); EOSINOPHILS % 1.3 % (0.0-6.0); HEMATOCRIT 32.5 % (34.2-44.1); HEMOGLOBIN 10.2 g/dL (12.0-16.0); LYMPHOCYTES # (AUTO) 1.1 (1.0-3.2); LYMPHOCYTES % 28.9 % (18.0-39.1); MEAN CORPUSCULAR HEMOGLOBIN 28.3 pg (28-32); MEAN CORPUSCULAR HGB CONC 31.4 g/dL (31-35); MEAN CORPUSCULAR VOLUME 90.3 fL (81-99); MONOCYTES # (AUTO) 0.9 (0.2-0.8); MONOCYTES % 23.7 % (4.4-11.3); NEUTROPHILS # (AUTO) 1.8 (2.1-6.9); NEUTROPHILS % 45.3 % (38.7-80.0); PLATELET COUNT 249 x10e3/uL (140-360); RED CELL DISTRIBUTION WIDTH 17.9 % (11.7-14.4)
[2017-10-31 05:32] LABS: ANION GAP 11.1 mmol/L (8-16); BLOOD UREA NITROGEN 15 mg/dL (7-26); BUN/CREATININE RATIO 24 (6-25); CALCIUM 9.4 mg/dL (8.4-10.2); CARBON DIOXIDE 27 mmol/L (22-29); CHLORIDE 105 mmol/L (98-107); CREATININE, SERUM 0.62 mg/dL (0.57-1.11); EST GLOMERULAR FILTRATION RATE > 60 ML/MIN (60-); GLUCOSE 110 mg/dL (74-118); POTASSIUM 4.1 mmol/L (3.5-5.1); SODIUM 139 mmol/L (136-145)
[2017-10-31] MEDS: NYSTATIN/TRIAMCINOLONE 15 GM CR TOP SCH ×2 (09:21→16:53)
[2017-10-31] MEDS: LEVETIRACETAM ORAL SOLUTION 500 MG/5 ML SOLN PEG SCH ×2 (09:21→20:36)
[2017-10-31] MEDS: MULTIVITAMINS 5 ML LIQUID PEG SCH (09:21)
[2017-10-31] MEDS: PREDNISOLONE 15 MG/5 ML ORAL SOLUTION PEG SCH (09:21)
[2017-10-31] MEDS: ZINC SULFATE 220 MG CAP PO SCH (09:21)
[2017-10-31] MEDS: AZATHIOPRINE 50 MG TAB PO SCH (09:21)
[2017-10-31] MEDS: CHOLECALCIFEROL 1,000 UNIT TAB PEG SCH (09:21)
[2017-10-31] MEDS: LACTOBACILLUS ACIDOPHILUS CAPSULE PEG SCH ×2 (09:21→16:53)
[2017-10-31] MEDS: ASCORBIC ACID 500 MG TAB PEG SCH ×2 (09:21→16:53)
[2017-10-31] MEDS: APIXABAN 5 MG TABLET PO SCH ×2 (09:21→16:53)
[2017-10-31] MEDS: ASPIRIN 81 MG CHEW TAB PO SCH (09:21)
[2017-10-31] MEDS ORDERED: ACETAMINOPHEN 325 MG TAB GT PRN (10:15)
[2017-10-31] MEDS ORDERED: ACETAMINOPHEN 325 MG/10 ML UDC GT PRN (11:00)
[2017-10-31] MEDS ORDERED: ACETAMINOPHEN 325 MG/10 ML UDC NG PRN (11:00)
[2017-10-31] MEDS: ACETAMINOPHEN 325 MG/10 ML UDC GT PRN (11:22)
[2017-11-01] VITALS (9 sets, daily range): BP systolic 118–165; BP diastolic 60–81
[2017-11-01] MEDS: LEVALBUTEROL HCL SOLN NEBU 0.63 MG/3 ML NEB INH PRN (09:02)
[2017-11-01] MEDS: ASPIRIN 81 MG CHEW TAB PO SCH (09:57)
[2017-11-01] MEDS: CHOLECALCIFEROL 1,000 UNIT TAB PEG SCH (09:57)
[2017-11-01] MEDS: PREDNISOLONE 15 MG/5 ML ORAL SOLUTION PEG SCH (09:57)
[2017-11-01] MEDS: APIXABAN 5 MG TABLET PO SCH ×2 (09:57→18:02)
[2017-11-01] MEDS: AZATHIOPRINE 50 MG TAB PO SCH (09:57)
[2017-11-01] MEDS: MULTIVITAMINS 5 ML LIQUID PEG SCH (09:57)
[2017-11-01] MEDS: ASCORBIC ACID 500 MG TAB PEG SCH ×2 (09:57→18:02)
[2017-11-01] MEDS: NYSTATIN/TRIAMCINOLONE 15 GM CR TOP SCH ×2 (09:57→18:02)
[2017-11-01] MEDS: LEVETIRACETAM ORAL SOLUTION 500 MG/5 ML SOLN PEG SCH ×2 (09:57→20:40)
[2017-11-01] MEDS: LACTOBACILLUS ACIDOPHILUS CAPSULE PEG SCH ×2 (09:57→18:02)
[2017-11-01] MEDS: ZINC SULFATE 220 MG CAP PO SCH (09:57)
--- NOTE | 2017-11-01 12:28 | Diagnostic Imaging Report ---
PROCEDURE: CHEST SINGLE (PORTABLE) COMPARISON: 10/29/2017. INDICATIONS: PNEUMONIA FINDINGS: The lungs remain well-inflated. Linear opacities in the perihilar regions may reflect fibrotic changes or interstitial edema as previously discussed. No consolidative pneumonia. Stable cardiomediastinal contour. No acute osseous abnormality. CONCLUSION: Stable appearance of the heart and lungs relative to 10/29/2017. Dictated by: Berry Maier M.D. on 11/01/2017 at 12:33 Electronically approved by: Berry Maier M.D. on 11/01/2017 at 12:33
[2017-11-02] VITALS (8 sets, daily range): BP systolic 119–156; BP diastolic 58–74
[2017-11-02 04:59] LABS: BASOPHILS % 0.6 % (0.0-1.0); EOSINOPHILS # (AUTO) 0.1 (0.0-0.4); EOSINOPHILS % 2.2 % (0.0-6.0); HEMATOCRIT 35.9 % (34.2-44.1); HEMOGLOBIN 11.3 g/dL (12.0-16.0); LYMPHOCYTES # (AUTO) 1.4 (1.0-3.2); LYMPHOCYTES % 44.3 % (18.0-39.1); MEAN CORPUSCULAR HEMOGLOBIN 28.8 pg (28-32); MEAN CORPUSCULAR HGB CONC 31.5 g/dL (31-35); MEAN CORPUSCULAR VOLUME 91.3 fL (81-99); MONOCYTES # (AUTO) 0.6 (0.2-0.8); MONOCYTES % 18.6 % (4.4-11.3); NEUTROPHILS # (AUTO) 1.1 (2.1-6.9); PLATELET COUNT 254 x10e3/uL (140-360); RED BLOOD COUNT 3.93 x10e6/uL (3.6-5.1); RED CELL DISTRIBUTION WIDTH 17.4 % (11.7-14.4)
[2017-11-02 05:18] LABS: BLOOD UREA NITROGEN 14 mg/dL (7-26); BUN/CREATININE RATIO 24 (6-25); CALCIUM 9.8 mg/dL (8.4-10.2); CARBON DIOXIDE 24 mmol/L (22-29); CHLORIDE 106 mmol/L (98-107); CREATININE, SERUM 0.58 mg/dL (0.57-1.11); EST GLOMERULAR FILTRATION RATE > 60 ML/MIN (60-); GLUCOSE 78 mg/dL (74-118); SODIUM 139 mmol/L (136-145)
[2017-11-02] MEDS: ASPIRIN 81 MG CHEW TAB PO SCH (10:03)
[2017-11-02] MEDS: AZATHIOPRINE 50 MG TAB PO SCH (10:03)
[2017-11-02] MEDS: CHOLECALCIFEROL 1,000 UNIT TAB PEG SCH (10:03)
[2017-11-02] MEDS: LEVETIRACETAM ORAL SOLUTION 500 MG/5 ML SOLN PEG SCH ×2 (10:03→21:43)
[2017-11-02] MEDS: LACTOBACILLUS ACIDOPHILUS CAPSULE PEG SCH ×2 (10:03→17:39)
[2017-11-02] MEDS: ZINC SULFATE 220 MG CAP PO SCH (10:03)
[2017-11-02] MEDS: MULTIVITAMINS 5 ML LIQUID PEG SCH (10:03)
[2017-11-02] MEDS: PREDNISOLONE 15 MG/5 ML ORAL SOLUTION PEG SCH (10:03)
[2017-11-02] MEDS: NYSTATIN/TRIAMCINOLONE 15 GM CR TOP SCH ×2 (10:03→17:39)
[2017-11-02] MEDS: ASCORBIC ACID 500 MG TAB PEG SCH ×2 (10:03→17:39)
[2017-11-02] MEDS: APIXABAN 5 MG TABLET PO SCH ×2 (10:03→17:39)
[2017-11-03] VITALS (7 sets, daily range): BP systolic 123–145; BP diastolic 60–92
[2017-11-03] MEDS: MULTIVITAMINS 5 ML LIQUID PEG SCH (09:25)
[2017-11-03] MEDS: APIXABAN 5 MG TABLET PO SCH ×2 (09:25→17:12)
[2017-11-03] MEDS: CHOLECALCIFEROL 1,000 UNIT TAB PEG SCH (09:25)
[2017-11-03] MEDS: NYSTATIN/TRIAMCINOLONE 15 GM CR TOP SCH ×2 (09:25→17:12)
[2017-11-03] MEDS: ASCORBIC ACID 500 MG TAB PEG SCH ×2 (09:25→17:12)
[2017-11-03] MEDS: LEVETIRACETAM ORAL SOLUTION 500 MG/5 ML SOLN PEG SCH ×2 (09:25→20:26)
[2017-11-03] MEDS: ZINC SULFATE 220 MG CAP PO SCH (09:25)
[2017-11-03] MEDS: AZATHIOPRINE 50 MG TAB PO SCH (09:25)
[2017-11-03] MEDS: LACTOBACILLUS ACIDOPHILUS CAPSULE PEG SCH ×2 (09:25→17:12)
[2017-11-03] MEDS: PREDNISOLONE 15 MG/5 ML ORAL SOLUTION PEG SCH (09:25)
[2017-11-03] MEDS: ASPIRIN 81 MG CHEW TAB PO SCH (09:25)
[2017-11-03] MEDS: ACETAMINOPHEN 325 MG/10 ML UDC GT PRN (20:26)
[2017-11-04] VITALS (7 sets, daily range): BP systolic 109–135; BP diastolic 66–83
[2017-11-04] MEDS: ACETAMINOPHEN 325 MG/10 ML UDC GT PRN ×2 (05:22→20:57)
--- NOTE | 2017-11-04 09:15 | Diagnostic Imaging Report ---
EXAM: XR CHEST 1 VIEW DATE: 11/04/2017 8:18 AM INDICATION: Fever COMPARISON: 11/01/2017 FINDINGS: Lines and Tubes: None Heart and Mediastinum: No acute cardiomediastinal findings. Lungs and Pleura: Patchy opacities lung bases. Bones and Soft Tissues: No acute findings. IMPRESSION: 1. Basilar atelectasis versus pneumonia. Signed by: Dr. Humberto Martinez MD on 11/04/2017 9:12 AM
[2017-11-04] MEDS: ZINC SULFATE 220 MG CAP PO SCH (09:43)
[2017-11-04] MEDS: NYSTATIN/TRIAMCINOLONE 15 GM CR TOP SCH ×2 (09:43→16:52)
[2017-11-04] MEDS: LEVETIRACETAM ORAL SOLUTION 500 MG/5 ML SOLN PEG SCH ×2 (09:43→20:57)
[2017-11-04] MEDS: AZATHIOPRINE 50 MG TAB PO SCH (09:43)
[2017-11-04] MEDS: MULTIVITAMINS 5 ML LIQUID PEG SCH (09:43)
[2017-11-04] MEDS: ASCORBIC ACID 500 MG TAB PEG SCH ×2 (09:43→16:52)
[2017-11-04] MEDS: CHOLECALCIFEROL 1,000 UNIT TAB PEG SCH (09:43)
[2017-11-04] MEDS: LACTOBACILLUS ACIDOPHILUS CAPSULE PEG SCH ×2 (09:43→16:52)
[2017-11-04] MEDS: VANCOMYCIN 1GM/NS 250 ML 250 ML IV SCH ×2 (09:43→20:57)
[2017-11-04] MEDS: APIXABAN 5 MG TABLET PO SCH ×2 (09:43→16:52)
[2017-11-04] MEDS: ASPIRIN 81 MG CHEW TAB PO SCH (09:43)
[2017-11-04] MEDS: PREDNISOLONE 15 MG/5 ML ORAL SOLUTION PEG SCH (09:43)
[2017-11-04] MEDS ORDERED: MEROPENEM 500MG 500 MG in SODIUM CHLORIDE 0.9% 50ML 50 ML IV SCH (14:00)
[2017-11-04] MEDS: MEROPENEM 500 MG VIAL IV SCH ×2 (14:00→22:53)
[2017-11-04] MEDS: METOCLOPRAMIDE HCL 10MG/10ML UDC GT SCH ×2 (16:30→16:52)
[2017-11-05] VITALS: BP 128/62
[2017-11-05 04:00] VITALS: BP 111/66
[2017-11-05] MEDS: MEROPENEM 500 MG VIAL IV SCH ×3 (05:39→22:30)
[2017-11-05] MEDS: METOCLOPRAMIDE HCL 10MG/10ML UDC GT SCH ×3 (07:30→16:30)
[2017-11-05] MEDS: MULTIVITAMINS 5 ML LIQUID PEG SCH (09:00)
[2017-11-05] MEDS: AZATHIOPRINE 50 MG TAB PO SCH (09:00)
[2017-11-05] MEDS: ZINC SULFATE 220 MG CAP PO SCH (09:00)
[2017-11-05] MEDS: ASPIRIN 81 MG CHEW TAB PO SCH (09:00)
[2017-11-05] MEDS: ASCORBIC ACID 500 MG TAB PEG SCH ×2 (09:00→17:00)
[2017-11-05] MEDS: NYSTATIN/TRIAMCINOLONE 15 GM CR TOP SCH ×2 (09:00→17:00)
[2017-11-05] MEDS: PREDNISOLONE 15 MG/5 ML ORAL SOLUTION PEG SCH (09:00)
[2017-11-05] MEDS: LEVETIRACETAM ORAL SOLUTION 500 MG/5 ML SOLN PEG SCH ×2 (09:00→22:30)
[2017-11-05] MEDS: VANCOMYCIN 1GM/NS 250 ML 250 ML IV SCH ×2 (09:00→22:30)
[2017-11-05] MEDS: APIXABAN 5 MG TABLET PO SCH ×2 (09:00→17:00)
[2017-11-05] MEDS: LACTOBACILLUS ACIDOPHILUS CAPSULE PEG SCH ×2 (09:00→17:00)
[2017-11-05] MEDS: CHOLECALCIFEROL 1,000 UNIT TAB PEG SCH (09:00)
[2017-11-05 12:00] VITALS: BP 123/68
[2017-11-05 17:05] VITALS: BP 113/62
[2017-11-05] MEDS: LEVALBUTEROL HCL SOLN NEBU 0.63 MG/3 ML NEB INH PRN (19:20)
[2017-11-05 20:00] VITALS: BP 98/62
[2017-11-06] VITALS (7 sets, daily range): BP systolic 109–125; BP diastolic 51–79
[2017-11-06 05:21] LABS: BASOPHILS % 0.3 % (0.0-1.0); EOSINOPHILS % 0.3 % (0.0-6.0); HEMATOCRIT 37.7 % (34.2-44.1); HEMOGLOBIN 11.9 g/dL (12.0-16.0); LYMPHOCYTES % 16.3 % (18.0-39.1); MEAN CORPUSCULAR HEMOGLOBIN 28.7 pg (28-32); MEAN CORPUSCULAR HGB CONC 31.6 g/dL (31-35); MEAN CORPUSCULAR VOLUME 90.8 fL (81-99); MONOCYTES # (AUTO) 0.9 (0.2-0.8); MONOCYTES % 14.1 % (4.4-11.3); NEUTROPHILS # (AUTO) 4.2 (2.1-6.9); NEUTROPHILS % 68.7 % (38.7-80.0); PLATELET COUNT 224 x10e3/uL (140-360); RED BLOOD COUNT 4.15 x10e6/uL (3.6-5.1); RED CELL DISTRIBUTION WIDTH 17.8 % (11.7-14.4)
[2017-11-06] MEDS: MEROPENEM 500 MG VIAL IV SCH ×3 (05:22→22:09)
[2017-11-06 05:46] LABS: ALANINE AMINOTRANSFERASE 20 IU/L (0-55); ALBUMIN 2.4 g/dL (3.5-5.0); ALBUMIN/GLOBULIN RATIO 0.5 (0.8-2.0); ALKALINE PHOSPHATASE 104 IU/L (40-150); ANION GAP 13.2 mmol/L (8-16); BLOOD UREA NITROGEN 28 mg/dL (7-26); BUN/CREATININE RATIO 44 (6-25); CALCIUM 9.3 mg/dL (8.4-10.2); CARBON DIOXIDE 23 mmol/L (22-29); CHLORIDE 112 mmol/L (98-107); CREATININE, SERUM 0.64 mg/dL (0.57-1.11); EST GLOMERULAR FILTRATION RATE > 60 ML/MIN (60-); GLUCOSE 121 mg/dL (74-118); POTASSIUM 3.2 mmol/L (3.5-5.1); SODIUM 145 mmol/L (136-145)
--- NOTE | 2017-11-06 06:25 | Diagnostic Imaging Report ---
CHEST SINGLE (PORTABLE), 11/06/2017 5:00 AM Technique: CHEST SINGLE (PORTABLE) Comparison: 11/04/2017 Clinical history: Pneumonia Findings: See Impression Impression: Rotated portable radiograph 1. Stable cardiomediastinal silhouette 2. Emphysema with predominantly left basilar opacity, which may reflect atelectasis/scarring or pneumonia. Attention on follow-up to document resolution. Signed by: Dr Katina Soler MD on 11/06/2017 6:21 AM
[2017-11-06] MEDS ORDERED: POTASSIUM CHLORIDE 20MEQ/15ML UDC NG ONE ×2 (08:00→10:00)
[2017-11-06] MEDS: NYSTATIN/TRIAMCINOLONE 15 GM CR TOP SCH ×2 (08:30→16:48)
[2017-11-06] MEDS: ASCORBIC ACID 500 MG TAB PEG SCH ×2 (09:45→16:48)
[2017-11-06] MEDS: MULTIVITAMINS 5 ML LIQUID PEG SCH (09:45)
[2017-11-06] MEDS: LACTOBACILLUS ACIDOPHILUS CAPSULE PEG SCH ×2 (09:45→16:48)
[2017-11-06] MEDS: ASPIRIN 81 MG CHEW TAB PO SCH (09:45)
[2017-11-06] MEDS: PREDNISOLONE 15 MG/5 ML ORAL SOLUTION PEG SCH (09:45)
[2017-11-06] MEDS: AZATHIOPRINE 50 MG TAB PO SCH (09:45)
[2017-11-06] MEDS: LEVETIRACETAM ORAL SOLUTION 500 MG/5 ML SOLN PEG SCH ×2 (09:45→22:09)
[2017-11-06] MEDS: METOCLOPRAMIDE HCL 10MG/10ML UDC GT SCH ×3 (09:45→16:47)
[2017-11-06] MEDS: ZINC SULFATE 220 MG CAP PO SCH (09:45)
[2017-11-06] MEDS: APIXABAN 5 MG TABLET PO SCH ×2 (09:45→16:48)
[2017-11-06] MEDS: CHOLECALCIFEROL 1,000 UNIT TAB PEG SCH (09:45)
[2017-11-06] MEDS: VANCOMYCIN 1GM/NS 250 ML 250 ML IV SCH ×2 (11:30→22:09)
[2017-11-06] MEDS: VANCOMYCIN 250MG/5ML ORAL SOLN NG SCH (16:48)
[2017-11-07] MEDS: VANCOMYCIN 250MG/5ML ORAL SOLN NG SCH ×5 (00:08→23:39)
[2017-11-07 05:19] LABS: BASOPHILS % 0.5 % (0.0-1.0); EOSINOPHILS # (AUTO) 0.1 (0.0-0.4); EOSINOPHILS % 1.1 % (0.0-6.0); HEMATOCRIT 35.4 % (34.2-44.1); HEMOGLOBIN 10.9 g/dL (12.0-16.0); LYMPHOCYTES # (AUTO) 1.1 (1.0-3.2); LYMPHOCYTES % 24.5 % (18.0-39.1); MEAN CORPUSCULAR HEMOGLOBIN 28.6 pg (28-32); MEAN CORPUSCULAR HGB CONC 30.8 g/dL (31-35); MEAN CORPUSCULAR VOLUME 92.9 fL (81-99); MONOCYTES # (AUTO) 0.7 (0.2-0.8); MONOCYTES % 15.1 % (4.4-11.3); NEUTROPHILS # (AUTO) 2.6 (2.1-6.9); NEUTROPHILS % 58.3 % (38.7-80.0); PLATELET COUNT 218 x10e3/uL (140-360); RED BLOOD COUNT 3.81 x10e6/uL (3.6-5.1); RED CELL DISTRIBUTION WIDTH 17.4 % (11.7-14.4)
[2017-11-07 05:39] LABS: BLOOD UREA NITROGEN 24 mg/dL (7-26); BUN/CREATININE RATIO 44 (6-25); CALCIUM 9.6 mg/dL (8.4-10.2); CARBON DIOXIDE 23 mmol/L (22-29); CHLORIDE 115 mmol/L (98-107); CREATININE, SERUM 0.55 mg/dL (0.57-1.11); EST GLOMERULAR FILTRATION RATE > 60 ML/MIN (60-); GLUCOSE 98 mg/dL (74-118); SODIUM 145 mmol/L (136-145)
[2017-11-07] MEDS: MEROPENEM 500 MG VIAL IV SCH (06:27)
[2017-11-07] MEDS: METOCLOPRAMIDE HCL 10MG/10ML UDC GT SCH ×3 (07:30→16:30)
[2017-11-07 08:00] VITALS: BP 112/68
[2017-11-07] MEDS: LEVETIRACETAM ORAL SOLUTION 500 MG/5 ML SOLN PEG SCH ×2 (10:08→20:41)
[2017-11-07] MEDS: MULTIVITAMINS 5 ML LIQUID PEG SCH (10:08)
[2017-11-07] MEDS: PREDNISOLONE 15 MG/5 ML ORAL SOLUTION PEG SCH (10:08)
[2017-11-07] MEDS: VANCOMYCIN 1GM/NS 250 ML 250 ML IV SCH (10:08)
[2017-11-07] MEDS: LACTOBACILLUS ACIDOPHILUS CAPSULE PEG SCH ×2 (10:09→17:31)
[2017-11-07] MEDS: ASPIRIN 81 MG CHEW TAB PO SCH (10:09)
[2017-11-07] MEDS: CHOLECALCIFEROL 1,000 UNIT TAB PEG SCH (10:09)
[2017-11-07] MEDS: ZINC SULFATE 220 MG CAP PO SCH (10:09)
[2017-11-07] MEDS: ASCORBIC ACID 500 MG TAB PEG SCH ×2 (10:09→17:31)
[2017-11-07] MEDS: NYSTATIN/TRIAMCINOLONE 15 GM CR TOP SCH ×2 (10:09→17:31)
[2017-11-07] MEDS: APIXABAN 5 MG TABLET PO SCH ×2 (10:09→17:31)
[2017-11-07] MEDS: AZATHIOPRINE 50 MG TAB PO SCH (10:09)
[2017-11-07 11:51] VITALS: BP 114/69
[2017-11-07 15:26] VITALS: BP 114/69
[2017-11-07 16:00] VITALS: BP 121/70
[2017-11-07 20:00] VITALS: BP 128/74
[2017-11-08] VITALS (7 sets, daily range): BP systolic 126–147; BP diastolic 78–84
[2017-11-08] MEDS: VANCOMYCIN 250MG/5ML ORAL SOLN NG SCH ×3 (04:58→18:19)
[2017-11-08] MEDS: LEVETIRACETAM ORAL SOLUTION 500 MG/5 ML SOLN PEG SCH ×2 (09:04→20:33)
[2017-11-08] MEDS: METOCLOPRAMIDE HCL 10MG/10ML UDC GT SCH ×3 (09:04→16:30)
[2017-11-08] MEDS: APIXABAN 5 MG TABLET PO SCH ×2 (09:05→17:00)
[2017-11-08] MEDS: PREDNISOLONE 15 MG/5 ML ORAL SOLUTION PEG SCH (09:05)
[2017-11-08] MEDS: MULTIVITAMINS 5 ML LIQUID PEG SCH (09:05)
[2017-11-08] MEDS: ZINC SULFATE 220 MG CAP PO SCH (09:05)
[2017-11-08] MEDS: LACTOBACILLUS ACIDOPHILUS CAPSULE PEG SCH ×2 (09:05→17:00)
[2017-11-08] MEDS: ASCORBIC ACID 500 MG TAB PEG SCH ×2 (09:05→17:00)
[2017-11-08] MEDS: AZATHIOPRINE 50 MG TAB PO SCH (09:05)
[2017-11-08] MEDS: ASPIRIN 81 MG CHEW TAB PO SCH (09:05)
[2017-11-08] MEDS: NYSTATIN/TRIAMCINOLONE 15 GM CR TOP SCH ×2 (09:05→17:00)
[2017-11-08] MEDS: CHOLECALCIFEROL 1,000 UNIT TAB PEG SCH (09:05)
--- NOTE | 2017-11-08 11:00 | Diagnostic Imaging Report ---
PROCEDURE: A single AP view of the chest. COMPARISON: Chest radiograph 11/06/17. INDICATIONS: PNEUMONIA FINDINGS: Rotated radiograph. Lines/tubes: None. Lungs: Emphysematous changes of the lungs. Bibasilar patchy and linear opacities are present with slight increase in patchy opacities in the right lower lung. Pleura: There is no pleural effusion or pneumothorax. Heart and mediastinum: The cardiomediastinal silhouette is unchanged. Bones: No acute bony abnormality. IMPRESSION: Emphysematous changes of the lungs with bibasilar opacities, slightly increased in the right lung base. This could represent pneumonia or atelectasis in the appropriate clinical setting. Dictated by: INA BURNETT M.D. on 11/08/2017 at 11:05 Electronically approved by: INA BURNETT M.D. on 11/08/2017 at 11:05
[2017-11-08] MEDS: LEVALBUTEROL HCL SOLN NEBU 0.63 MG/3 ML NEB INH PRN (19:32)
[2017-11-09 00:28] VITALS: BP 139/72
[2017-11-09] MEDS: VANCOMYCIN 250MG/5ML ORAL SOLN NG SCH ×2 (01:45→05:16)
[2017-11-09 04:38] LABS: BASOPHILS % 0.5 % (0.0-1.0); EOSINOPHILS # (AUTO) 0.1 (0.0-0.4); EOSINOPHILS % 2.2 % (0.0-6.0); HEMATOCRIT 33.8 % (34.2-44.1); HEMOGLOBIN 10.8 g/dL (12.0-16.0); LYMPHOCYTES # (AUTO) 1.2 (1.0-3.2); LYMPHOCYTES % 31.4 % (18.0-39.1); MEAN CORPUSCULAR HEMOGLOBIN 28.4 pg (28-32); MONOCYTES # (AUTO) 0.5 (0.2-0.8); MONOCYTES % 13.9 % (4.4-11.3); NEUTROPHILS # (AUTO) 1.9 (2.1-6.9); NEUTROPHILS % 51.7 % (38.7-80.0); PLATELET COUNT 237 x10e3/uL (140-360); RED CELL DISTRIBUTION WIDTH 16.6 % (11.7-14.4)
[2017-11-09 04:50] LABS: MEAN CORPUSCULAR VOLUME 88.9 fL (81-99)
[2017-11-09 05:16] LABS: ALANINE AMINOTRANSFERASE 31 IU/L (0-55); ALBUMIN 2.4 g/dL (3.5-5.0); ALBUMIN/GLOBULIN RATIO 0.6 (0.8-2.0); ALKALINE PHOSPHATASE 98 IU/L (40-150); ANION GAP 10.4 mmol/L (8-16); BLOOD UREA NITROGEN 16 mg/dL (7-26); BUN/CREATININE RATIO 30 (6-25); CALCIUM 9.1 mg/dL (8.4-10.2); CARBON DIOXIDE 24 mmol/L (22-29); CHLORIDE 107 mmol/L (98-107); CREATININE, SERUM 0.53 mg/dL (0.57-1.11); EST GLOMERULAR FILTRATION RATE > 60 ML/MIN (60-); GLUCOSE 95 mg/dL (74-118); POTASSIUM 3.4 mmol/L (3.5-5.1); SODIUM 138 mmol/L (136-145)
[2017-11-09 06:28] VITALS: BP 134/78
[2017-11-09 07:09] LABS: LYMPHOCYTES % (MANUAL) 27 % (19-48); MONOCYTES % (MANUAL) 13 % (3.4-9.0); NEUTROPHILS % (MANUAL) 56 % (40-74)
[2017-11-09 07:10] LABS: ANISOCYTOSIS SLIGHT; EOSINOPHILS % (MANUAL) 3 % (0-7); HYPOCHROMASIA SLIGHT; PLATELET ESTIMATE ADEQUATE; PLATELET MORPHOLOGY COMMENT NORMAL; POIKILOCYTOSIS SLIGHT; RBC MORPHOLOGY COMMENT NORMAL
[2017-11-09 08:00] VITALS: BP 132/65
[2017-11-09 10:00] VITALS: BP 132/65
[2017-11-09] MEDS: LEVETIRACETAM ORAL SOLUTION 500 MG/5 ML SOLN PEG SCH (10:00)
[2017-11-09] MEDS: AZATHIOPRINE 50 MG TAB PO SCH (10:00)
[2017-11-09] MEDS: ASCORBIC ACID 500 MG TAB PEG SCH (10:00)
[2017-11-09] MEDS: ASPIRIN 81 MG CHEW TAB PO SCH (10:00)
[2017-11-09] MEDS: PREDNISOLONE 15 MG/5 ML ORAL SOLUTION PEG SCH (10:00)
[2017-11-09] MEDS: MULTIVITAMINS 5 ML LIQUID PEG SCH (10:00)
[2017-11-09] MEDS: ZINC SULFATE 220 MG CAP PO SCH (10:00)
[2017-11-09] MEDS: LACTOBACILLUS ACIDOPHILUS CAPSULE PEG SCH (10:00)
[2017-11-09] MEDS: CHOLECALCIFEROL 1,000 UNIT TAB PEG SCH (10:00)
[2017-11-09] MEDS: APIXABAN 5 MG TABLET PO SCH (10:00)
--- NOTE | 2017-11-09 11:43 | Discharge Summary ---
ADMITTING DIAGNOSES 1. Clostridium difficile colitis. 2. Mgbix-dj-mwinrrr respiratory failure. 3. Cerebrovascular disease with right hemiparesis. 4. Gram-negative jazmine pneumonia. 5. Systemic lupus erythematosus. 6. Seizure disorder. DISCHARGE DIAGNOSES 1. Gram-negative jazmine pneumonia (Pseudomonas aeruginosa), resolved. 2. Pseudomonas aeruginosa and Providencia stuartii urinary tract infection, resolved. 3. Status post tracheostomy removal. 4. Clostridium difficile colitis. 5. Cerebrovascular disease (old cerebrovascular accident with right hemiparesis). 6. Systemic lupus erythematosus. 7. Seizure disorder. HOSPITAL COURSE: This is a 61-year-old woman who was transferred from a local care home facility, namely [facility], to [facility] because of Clostridium difficile colitis. During this hospitalization, the patient's tracheostomy tube was found to be dislodged; thus, a new tracheostomy tube was placed by ears, nose and throat specialist, namely Dr. Tanvir Robert. During this hospitalization, the patient's tracheostomy tube was actually decannulated. The patient was able to tolerate room air oxygen during this hospital stay. During this hospitalization, the patient was found to have Pseudomonas aeruginosa pneumonia confirmed by sputum culture. Also during this hospitalization, urine culture revealed a growth of Providencia stuartii and Pseudomonas aeruginosa bacterial species. The patient was fully treated with intravenous vancomycin and cefepime during this hospitalization. The patient was started on oral vancomycin during this hospitalization for her Clostridium difficile colitis. The decision was made to discharge the patient to home with family members. DISCHARGE MEDICATIONS 1. Vancomycin 250 mg p.o. q.i.d. for 21 days. 2. Keppra 500 mg b.i.d. 3. Apixaban 5 mg b.i.d. 4. Metoclopramide 5 mg q.a.c. before meals. 5. Imuran 75 mg a day. 6. Prednisolone 5 mg daily. 7. Aspirin 81 mg daily. 8. Artificial tears 1 drop to each eye twice a day. JUN CA MD Job#: [id number] cc:MD SHIMA MCLEOD MD DAVID STEIN, MD
[2017-11-09 12:00] VITALS: BP 135/73
== END 2017-11-09 12:39 | disposition home health service (06) | DRG 871 ==
LOC: ER 10:38 → ERHOLD 12:25 → IMCU 18:20 → MED/SURG2 10-31 23:05
PROC: 0B21XFZ Change Tracheostomy Device in Trachea, External Approach (ICD-10-PCS; principal; 2017-10-25)
DX: A41.52 Sepsis due to Pseudomonas (principal); J69.0 Pneumonitis due to inhalation of food and vomit; L89.153 Pressure ulcer of sacral region, stage 3; J96.20 Acute and chronic respiratory failure, unspecified whether with hypoxia or hypercapnia; J15.1 Pneumonia due to Pseudomonas; J95.03 Malfunction of tracheostomy stoma; I69.351 Hemiplegia and hemiparesis following cerebral infarction affecting right dominant side; N30.00 Acute cystitis without hematuria; A04.71 Enterocolitis due to Clostridium difficile, recurrent; J95.02 Infection of tracheostomy stoma; R65.20 Severe sepsis without septic shock; Z16.22 Resistance to vancomycin related antibiotics; I10 Essential (primary) hypertension; R13.10 Dysphagia, unspecified; G40.909 Epilepsy, unspecified, not intractable, without status epilepticus; I48.91 Unspecified atrial fibrillation; I69.320 Aphasia following cerebral infarction; Z87.891 Personal history of nicotine dependence; Z86.19 Personal history of other infectious and parasitic diseases; M32.9 Systemic lupus erythematosus, unspecified; Z88.6 Allergy status to analgesic agent; Z88.5 Allergy status to narcotic agent; I69.391 Dysphagia following cerebral infarction; D63.8 Anemia in other chronic diseases classified elsewhere; E55.9 Vitamin D deficiency, unspecified; R19.7 Diarrhea, unspecified; D72.819 Decreased white blood cell count, unspecified; Z74.01 Bed confinement status; B96.5 Pseudomonas (aeruginosa) (mallei) (pseudomallei) as the cause of diseases classified elsewhere; B96.89 Other specified bacterial agents as the cause of diseases classified elsewhere; Z16.35 Resistance to multiple antimicrobial drugs
CPT/HCPCS: 31720; 36415; 36600; 71045; 80048; 80053; 80202; 81001; 82805; 82948; 83605; 83735; 85025; 87040; 87070; 87071; 87086; 87186; 87205; 87493; 94640; 99285; J0456; J0692; J0696; J2020; J2185; J3370; J7030